=== PATIENT | male | born 1985 | race Caucasian/White ===

== ENCOUNTER 2017-04-01 18:02 | Emergency (ER) | payer MEDICAID ==
[2017-04-01] MEDS: HYDROCODONE/APAP (5/325) TAB PO (20:56)
== END 2017-04-01 22:01 | disposition home or self-care (01) ==
LOC: FTE 18:02
DX: S93.402A Sprain of unspecified ligament of left ankle, initial encounter (principal); X58.XXXA Exposure to other specified factors, initial encounter; Y92.9 Unspecified place or not applicable
CPT/HCPCS: 73610; 99283